=== PATIENT | male | born 1995 | race Two or more races ===

== ENCOUNTER 2020-04-25 13:21 | Emergency (ER) | payer OTHER ==
[~2020-04-25] VITALS: Ht 180.3 cm; Wt 81.6 kg
[2020-04-25] MEDS ORDERED: KETO10TA2 PO (16:17)
== END 2020-04-25 17:22 ==
LOC: ER 13:21
DX: S62.141A Displaced fracture of body of hamate [unciform] bone, right wrist, initial encounter for closed fracture (principal); S62.91XA Unspecified fracture of right hand, initial encounter for closed fracture; S60.221A Contusion of right hand, initial encounter; W10.8XXA Fall (on) (from) other stairs and steps, initial encounter; Y93.89 Activity, other specified; Y92.098 Other place in other non-institutional residence as the place of occurrence of the external cause; Y99.8 Other external cause status

== ENCOUNTER 2023-07-04 11:29 | Emergency (ER) | payer OTHER ==
[~2023-07-04] VITALS: Ht 182.9 cm; Wt 81.6 kg
[~2023-07-04 11:29] MED LIST: KETO10TA2 PO
[2023-07-04] MEDS ORDERED: ORPHENADRINE CITRATE 30 MG/ML AMPUL IM ONE (15:45)
[2023-07-04] MEDS ORDERED: KETOROLAC TROMETHAMINE 60 MG VIAL IM ONE (15:45)
[2023-07-04] MEDS ORDERED: NORFLEX100MG PO (17:53)
[2023-07-04] MEDS ORDERED: DICLOFENAC SODI75 MG PO (17:53)
[2023-07-04] MEDS ORDERED: ACETAMINOPHEN WITH CODEINE 1 UDTAB TABLET PO ONE (18:45)
== END 2023-07-04 18:48 ==
LOC: ER 11:30
DX: M62.830 Muscle spasm of back (principal); M41.9 Scoliosis, unspecified; M51.36 Other intervertebral disc degeneration, lumbar region